=== PATIENT | female | born 1960 | race Caucasian/White ===

== ENCOUNTER 2021-06-04 19:59 | Emergency (ER) | payer OTHER ==
[~2021-06-04] VITALS: Ht 149.9 cm; Wt 76.2 kg
== END 2021-06-04 22:44 | disposition left against medical advice (07) ==
LOC: ER 19:59
DX: M79.605 Pain in left leg (principal); M79.602 Pain in left arm; I10 Essential (primary) hypertension; E11.9 Type 2 diabetes mellitus without complications; Z53.21 Procedure and treatment not carried out due to patient leaving prior to being seen by health care provider; Z98.890 Other specified postprocedural states; Z88.6 Allergy status to analgesic agent; Z91.012 Allergy to eggs; Z88.5 Allergy status to narcotic agent; Z91.018 Allergy to other foods

== ENCOUNTER 2021-06-05 12:34 | Emergency (ER) | payer BC ==
[~2021-06-05] VITALS: Ht 149.9 cm; Wt 76.2 kg
[2021-06-05 12:35] VITALS: BP 129/72
[2021-06-05 13:04] LABS: URINE BILIRUBIN NEGATIVE (Negative); URINE BLOOD TRACE (Negative); URINE CLARITY CLEAR; URINE COLOR YELLOW; URINE GLUCOSE-RANDOM* 2+ (Negative); URINE KETONES NEGATIVE (Negative); URINE LEUKOCYTES-REFLEX NEGATIVE (Negative); URINE NITRITE-REFLEX NEGATIVE (Negative); URINE PROTEIN (DIPSTICK) NEGATIVE (Negative); URINE UROBILINOGEN 0.2 E.U./dl (0.2-1.0)
--- NOTE | 2021-06-06 08:23 | EKG ---
[place] [address] [facility] [place] [address] ELECTROCARDIOGRAM REPORT Name: DAY CHIN Room #: [facility] Sekou#: [id number] Admission: 06/05/21 Attend Phys: Discharge: 06/05/21 Date of : 62 Report #: [id number] [facility] ED Test Date: 2021-06-05 Test Time: 15:12:13 Pat Name: DAY CHIN Department: Room: Gender: F Brim Blocker: JANNIE : 1960 Requested By: Janel Bennett Order Number: [id number] MD: Artie Alvarado Measurements Intervals [place] Rate: 86 P: 47 MI: 150 QRS: -49 QRSD: 88 T: 73 QT: 376 QTc: 450 Interpretive Statements Sinus rhythm Left anterior fascicular block Anterior infarct, old No previous ECG available for comparison Electronically Signed On 06-06-2021 8:22:39 AUTOMATION ARCHITECT by Artie Alvarado [email or web address] <ELECTRONICALLY SIGNED> By: Artie Alvarado MD, [facility] 06/06/21 0822 1512 1512 Artie Alvarado MD, FACC /EPI
== END 2021-06-05 18:35 | disposition home or self-care (01) ==
LOC: ER 12:34
PROVIDERS: Emergency Medicine
DX: U07.1 COVID-19 (principal); M79.605 Pain in left leg; M79.602 Pain in left arm; I10 Essential (primary) hypertension; E11.9 Type 2 diabetes mellitus without complications; E78.5 Hyperlipidemia, unspecified; Z88.6 Allergy status to analgesic agent; Z98.890 Other specified postprocedural states; Z91.012 Allergy to eggs; Z91.011 Allergy to milk products; Z88.8 Allergy status to other drugs, medicaments and biological substances; Z91.018 Allergy to other foods